=== PATIENT | female | born 1985 | race African-American/Black ===

== ENCOUNTER 2018-07-26 23:35 | Observation (INO) | payer BC, OTHER ==
[2018-07-26 23:38] VITALS: BMI 28.3
--- NOTE | 2018-07-26 23:40 | PDOC ---
History of Present Illness - General Chief Complaint: Pain, Acute Stated Complaint: HERNIA Time Seen by Provider: 07/26/18 23:40 - History of Present Illness Initial Comments: 07/26/18 23:40 Ms. Bocanegra is a 33 yo female w/ pmh of previous umbilical hernia repair w/ mesh who presents for evaluation of sudden onset umbilical pain earlier today. Patient reports she occasionally gets pains to her abdomen and sometimes has to push on her old hernia site, however has never had pain like currently. Patient was at work 1-1 1/2 hours ago and "moved funny" and had sudden onset severe abdominal pain. Reports pain is 10/10. Was in prior state of health until this. The patient denies chest pain, shortness of breath, headache and dizziness. Denies fever, chills, nausea, vomit, diarrhea and constipation. Denies dysuria, frequency, urgency and hematuria. Past History - Past Medical History Allergies/Adverse Reactions: Allergies Allergy/AdvReac Type Severity Reaction Status Date / Time No Known Allergies Allergy Verified 07/26/18 23:36 Home Medications: Ambulatory Orders NK [No Known Home Medication] 07/27/18 COPD: No GI Disorders: Yes (hernia) - Suicide/Smoking/Psychosocial Hx Smoking History: Never smoked Review of Systems - Review of Systems Comments:: 07/26/18 23:41 GENERAL/CONSTITUTIONAL: No fever or chills. No weakness. HEAD, EYES, EARS, NOSE AND THROAT: No change in vision. No ear pain or discharge. No sore throat. CARDIOVASCULAR: No chest pain or shortness of breath RESPIRATORY: No cough, wheezing, or hemoptysis. GASTROINTESTINAL: +Abdominal pain as described. No nausea, vomiting, diarrhea or constipation. GENITOURINARY: No dysuria, frequency, or change in urination. MUSCULOSKELETAL: No joint or muscle swelling or pain. No neck or back pain. SKIN: No rash NEUROLOGIC: No headache, vertigo, loss of consciousness, or change in strength/ sensation. ENDOCRINE: No increased thirst. No abnormal weight change HEMATOLOGIC/LYMPHATIC: No anemia, easy bleeding, or history of blood clots. ALLERGIC/IMMUNOLOGIC: No hives or skin allergy. *Physical Exam - Vital Signs Last Vital Signs Temp Pulse Resp BP Pulse Ox 97.9 F 76 18 134/71 100 07/26/18 23:37 07/26/18 23:37 07/26/18 23:37 07/26/18 23:37 07/26/18 23:37 - Physical Exam Comments: 07/26/18 23:41 GENERAL: Awake, alert, and fully oriented, in no acute distress HEAD: No signs of trauma, normocephalic, atraumatic EYES: PERRLA, EOMI, sclera anicteric, conjunctiva clear ENT: Auricles normal inspection, hearing grossly normal, nares patent, oropharynx clear without exudates. Moist mucosa NECK: Normal ROM, supple, no lymphadenopathy, JVD, or masses LUNGS: No distress, speaks full sentences, clear to auscultation bilaterally HEART: Regular rate and rhythm, normal S1 and S2, no murmurs, rubs or gallops, peripheral pulses normal and equal bilaterally. ABDOMEN: +Midline umbilical hernia noted. Able to be reduced w/ change in abdominal pain from 10 to 6. Soft, normoactive bowel sounds. No guarding, no rebound. No masses EXTREMITIES: Normal inspection, Normal range of motion, no edema. No clubbing or cyanosis. NEUROLOGICAL: Cranial nerves II through XII grossly intact. Normal speech, normal gait, no focal sensorimotor deficits SKIN: Warm, Dry, normal turgor, no rashes or lesions noted. ED Treatment Course - LABORATORY CBC & Chemistry Diagram: 07/27/18 00:30 07/27/18 00:30 Medical Decision Making - Medical Decision Making 07/27/18 00:59 Ms. Bocanegra is a 33 yo female w/ pmh as described who presents for evaluation of symptoms concerning for appendicitis vs. hernia vs. other abdominal illness. Patient hernia noted during physical exam and able to be reduced at bedside w/ improvement of pain. Discussed patient with surgery who requested CT abd/pelvis with IV/Oral contrast. Patient currently pending CT for further evaluation. 07/27/18 02:18 Patient noted to be via serum so CT scan canceled. Surgery made aware and patient will be admitted for repeat evaluation overnight and possible MRI if needed tomorrow for further care needs. Patient reports pain has decreased to "about a 4/10" at this time. *DC/Admit/Observation/Transfer Diagnosis at time of Disposition: Umbilical hernia Qualifiers: Obstruction and gangrene presence: without obstruction or gangrene Qualified Code(s): K42.9 - Umbilical hernia without obstruction or gangrene Abdominal pain Qualifiers: Abdominal location: unspecified location Qualified Code(s): R10.9 - Unspecified abdominal pain - Discharge Dispostion Decision to Admit order: Yes - Referrals Referrals: ON STAFF,NOT [Primary Care Provider] - - Patient Instructions - Post Discharge Activity
[2018-07-26] MEDS ORDERED: morphine CARPU-JECT 4 MG/1 ML DISP.SYRIN IVPUSH ONE (23:58)
[2018-07-27] MEDS ORDERED: morphine SULFATE 4 MG/ML VIAL ONE (00:10)
[2018-07-27] MEDS ORDERED: ACETAMINOPHEN 1000 MG/100 ML VIAL (NON FORMULARY) IVPB ONE (00:14)
[2018-07-27] MEDS ORDERED: ACETAMINOPHEN INJECTION 100 ML IVPB ONE (00:16)
[2018-07-27 00:43] LABS: BASO % 0.7 % (0-2.0); EOS % 2.5 % (0-4.5); HEMOGLOBIN 12.6 GM/dL (10.7-15.3); LYMPH % 30.9 % (8-40); MCH 30.8 pg (25.7-33.7); MEAN CELL VOLUME 93.2 fl (80-96); MEAN PLT VOLUME 7.5 fl (7.5-11.1); MONO % 4.8 % (3.8-10.2); NEUT % 61.1 % (42.8-82.8); PLATELET COUNT 283 K/MM3 (134-434); RBC 4.08 M/mm3 (3.60-5.2); RDW 13.6 % (11.6-15.6); WHITE BLOOD COUNT 11.5 K/mm3 (4.0-10.0)
[2018-07-27 00:56] LABS: INR 0.95 (0.83-1.09); PROTHROMBIN TIME (PATIENT) 11.2 SEC (9.7-13.0)
[2018-07-27 00:59] LABS: ACTIVATED PTT 30.8 SECONDS (25.2-36.5)
[2018-07-27 01:21] LABS: ALBUMIN 3.4 g/dl (3.4-5.0); BILIRUBIN,TOTAL 0.2 mg/dL (0.2-1); CALCIUM 8.7 mg/dL (8.5-10.1); CREATININE 0.6 mg/dL (0.55-1.3); POTASSIUM 4.3 mmol/L (3.5-5.1); TOT PROT 7.1 g/dl (6.4-8.2)
[2018-07-27] MEDS ORDERED: LACTATED RINGERS SOLUTION 1,000 ML IV SCH (02:45)
--- NOTE | 2018-07-27 03:04 | HP ---
CHIEF COMPLAINT: abdominal pain PCP: [facility] HISTORY OF PRESENT ILLNESS: 33-year-old female with a past medical history of an umbilical hernia repair 14 years ago presents the hospital for 1 to 2 hours of severe abdominal pain. Sure reports that the pain is inThe middle of her abdomen just above her belly button.She states that she's had this pain in the past on and off,But it was never this severe.She states that it is in the location where she had her hernia repair with mesh placement 14 years ago. She reports that usually when She has the pain she pushes on the belly to reduce the hernia and it improves however she was not able to do that due to severe pain this episode. She reports the pain is 10 out of 10 in severity, whereas the previous episodes were around 3 to 4 out of 10. In the emergency room the ED provider was able to reduce the hernia and patient reported improved pain from a 10/10 to a 4/10. Patient is passing gas. Denies any nausea, vomiting, or diarrhea. Denies fevers, chills, chest pain, shortness of breath. 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 Denies hematochezia or melena. Patient states that she is hungry. Patient was going to get a CAT scan of the abdomen in the emergency room, however she was found to be the qualitative test, And the CAT scan was canceled. ER course was notable for: (1) WBC 11.5 (2) B-HCG + (3) Recent Travel: Denies PAST MEDICAL HISTORY: umbilical hernia repair 14 years ago PAST SURGICAL HISTORY: umbilical Hernia repair 14 years ago, eight years ago Social History: Smoking: Occasional Alcohol: Occasional with last use yesterday Drugs: It's Denies any history of drug use Family History: Denies any family history of heart disease, cancer, stroke, diabetes Allergies: Denies any drug allergies No Known Allergies Allergy (Verified 07/26/18 23:36) HOME MEDICATIONS: Home Medications Medication Instructions Recorded NK [No Known Home Medication] 07/27/18 REVIEW OF SYSTEMS CONSTITUTIONAL: Absent: fever, chills, diaphoresis, generalized weakness, malaise, loss of appetite, weight change HEENT: Absent: rhinorrhea, nasal congestion, throat pain, throat swelling, difficulty swallowing, mouth swelling, ear pain, eye pain, visual changes CARDIOVASCULAR: Absent: chest pain, syncope, palpitations, irregular heart rate, lightheadedness , peripheral edema RESPIRATORY: Absent: cough, shortness of breath, dyspnea with exertion, orthopnea, wheezing, stridor, hemoptysis GASTROINTESTINAL: Absent: abdominal pain, abdominal distension, nausea, vomiting, diarrhea, constipation, melena, hematochezia GENITOURINARY: Absent: dysuria, frequency, urgency, hesitancy, hematuria, flank pain, genital pain MUSCULOSKELETAL: Absent: myalgia, arthralgia, joint swelling, back pain, neck pain SKIN: Absent: rash, itching, pallor HEMATOLOGIC/IMMUNOLOGIC: Absent: easy bleeding, easy bruising, lymphadenopathy, frequent infections ENDOCRINE: Absent: unexplained weight gain, unexplained weight loss, heat intolerance, cold intolerance NEUROLOGIC: Absent: headache, focal weakness or paresthesias, dizziness, unsteady gait, seizure, mental status changes, bladder or bowel incontinence PSYCHIATRIC: Absent: anxiety, depression, suicidal or homicidal ideation, hallucinations. PHYSICAL EXAMINATION Vital Signs - 24 hr 07/26/18 23:37 Temperature 97.9 F Pulse Rate 76 Respiratory 18 Rate Blood Pressure 134/71 O2 Sat by Pulse 100 Oximetry (%) GENERAL: A&Ox3, no acute distress EYES: PERRLA, EOMI ENT: Moist mucus membranes NECK: No JVD LUNGS: CTA, no wheezes HEART: RRR, no murmurs ABDOMEN: Soft, BS present, Reducible umbilical hernia palpated, With only mild tenderness solicited. MUSCULOSKELETAL: No CVA Tenderness EXTREMITIES: 2+ pulses, no edema. NEUROLOGICAL: Cranial nerves II-XII intact. Laboratory Results - last 24 hr 07/27/18 07/27/18 07/27/18 00:30 00:30 00:30 WBC 11.5 H RBC 4.08 Hgb 12.6 Hct 38.0 MCV 93.2 MCH 30.8 MCHC 33.0 RDW 13.6 Plt Count 283 MPV 7.5 Absolute Neuts (auto) 7.0 Neutrophils % 61.1 Lymphocytes % 30.9 Monocytes % 4.8 Eosinophils % 2.5 Basophils % 0.7 Nucleated RBC % 0 PT with INR 11.20 INR 0.95 PTT (Actin FS) 30.8 Sodium 135 L Potassium 4.3 Chloride 104 Carbon Dioxide 25 Anion Gap 6 L BUN 20 H Creatinine 0.6 Est GFR (CKD-EPI)AfAm 138.80 Est GFR (CKD-EPI)NonAf 119.76 Random Glucose 83 Lactic Acid Calcium 8.7 Total Bilirubin 0.2 AST 17 ALT 25 Alkaline Phosphatase 57 Total Protein 7.1 Albumin 3.4 Beta HCG, Quant 1553.3 Serum , Qual Blood Type Antibody Screen 07/27/18 07/27/18 07/27/18 00:30 00:30 00:30 WBC RBC Hgb Hct MCV MCH MCHC RDW Plt Count MPV Absolute Neuts (auto) Neutrophils % Lymphocytes % Monocytes % Eosinophils % Basophils % Nucleated RBC % PT with INR INR PTT (Actin FS) Sodium Potassium Chloride Carbon Dioxide Anion Gap BUN Creatinine Est GFR (CKD-EPI)AfAm Est GFR (CKD-EPI)NonAf Random Glucose Lactic Acid 0.5 Calcium Total Bilirubin AST ALT Alkaline Phosphatase Total Protein Albumin Beta HCG, Quant Serum , Qual Positive Blood Type O POSITIVE Antibody Screen Negative ASSESSMENT/PLAN: 33-year-old female with a past medical history of an umbilical hernia repair 14 years ago presents the hospital for 1 to 2 hours of severe abdominal pain And is admitted for the evaluation of umbilical hernia #Umbilical Hernia: Unclear nature of the hernia given no imaging studies were done since patient is not able to get a CAT scan due to positive test. -Dr. Uribe consulted -ESR/CRP done -white count 11.5 -pain improved, continue tylenol for pain -will start diet and give as tolerated as patient is passing gas with improved pain /10 -ultrasound abdomen ordered #FEN -1 bag of LR -lytes within normal limits -diet as tolerated #Prophylaxis -SCDs #Disposition -admit obs Visit type - Emergency Visit Emergency Visit: Yes ED Registration Date: 07/27/18 Care time: The patient presented to the Emergency Department on the above date and was hospitalized for further evaluation of their emergent condition. - New Patient This patient is new to me today: Yes Date on this admission: 07/27/18 - Critical Care Critical Care patient: No
[2018-07-27] MEDS ORDERED: ACETAMINOPHEN 325 MG TABLET (FP) PO PRN (03:14)
--- NOTE | 2018-07-27 03:37 | PDOC ---
Documentation entered by Mia Dee SCRIBE, acting as scribe for Jessica Ornelas MD. Jessica Ornelas MD: This documentation has been prepared by the Leila kelly Daisy, SCRIBE, under my direction and personally reviewed by me in its entirety. I confirm that the documentation accurately reflects all work, treatment, procedures, and medical decision making performed by me. Attending Attestation - Resident Resident Name: Chong Dill - ED Attending Attestation I have performed the following: I have examined & evaluated the patient, The case was reviewed & discussed with the resident, I agree w/resident's findings & plan - HPI HPI: 07/26/18 23:49 The patient is a 33YOF with a PMH of umbilical hernia s/p repair with mesh 14 yrs ago at outside hospital, who presents to the ER for pain to umbilical hernia. She states she was at work when she began to experience sudden onset pain to the umbilical hernia site. no n/v no f/c no change to bowel movement. pain was severe. The patient denies chest pain, shortness of breath, headache and dizziness. Denies fever, chills, nausea, vomit, diarrhea and constipation. Denies dysuria, frequency, urgency and hematuria. Allergies: NKDA 07/27/18 03:33 - Physicial Exam PE: 07/27/18 03:32 awake alert lungs clear bilaterally heart rrr no mrg abd soft mild periumbilical ttp. no rebound no guarding. no palp residual hernia ( s/p reduction by dr dill). ext wwp no edema. nuero alert oriented x 3. skin warm and dry. - Medical Decision Making 07/27/18 03:34 33 yo F with umbilical hernia, s/p repair 14 yrs ago, here with recurrent hernia , reduced by dr dill on inital exam. with residual pain. differentil incarcerated fat hernia, bowel entrapment. bowel strangulation and injury, plan ct a/p surgery consult. ua ucg. pt ucg positive. unknown she was . ct cancelled. will require observation for concerns for ongoing pain and bowel integrity. tvus to eval status , gestation age dating. d/w reginald, aleida dmit. d/w dr millard general surgery, will evaluate pt in am, admitted to observation Heart Score/ECG Review #1 General ECG Interpretation: Sinus Rhythm, Normal Rate (80), Normal Intervals, No acute ischemic changes
--- NOTE | 2018-07-27 03:47 | PN ---
Teaching Attending Note ATTENDING PHYSICIAN STATEMENT I saw and evaluated the patient. I reviewed the resident's note and discussed the case with the resident. I agree with the resident's findings and plan as documented. SUBJECTIVE: Seen and examined; please refer to resident note for further historical information. Briefly, patient presents with periumbilical abdominal pain several hours prior to presentation. Had repair with mesh 14 years ago; she forgets who her surgeon is. She has had pain like this in the past improved with self-reducing the hernia. Positive bowel sounds, passing gas, has an appetite. Found to be in ER with +hcg so couldn't get CT. ER requested admission as CT cannot be done; no ultrasound available. Patient requested Dr. Uribe. 10 sys ROS done and negative aside from HPI PMH, PSH, FH, SH reviewed Home Medications Medication Instructions Recorded NK [No Known Home Medication] 07/27/18 OBJECTIVE: VS, labs, imaging reviewed NAD, AAO, resting comfortably in bed Umbilical hernia s/p reduction in ER, mild pain to palpation, ND, +BS NC AT EOMI PERRLA RRR s1/2 no mgr Lungs CTAB, w/ sym exp CN2-12 wnl, no fnd Normal mood, appropriate behavior ASSESSMENT AND PLAN: Patient has pain around her umbilical hernia; s/p repair with mesh 14 years ago. She requested to see Dr. Uribe in consultation. 1) Abdominal Pain with umbilical hernia -Passing gas, improved pain after hydration, has an appetite, hemodynamically stable, positive bowel sounds. PRN APAP available. -Followup surgical consult -Followup ultrasound -Diet as tolerated 2) Leukocytosis -Very mild; likely reactive. Trend CBC and check ESR/CRP 3) -OB referral; avoid teratogens and radiation DVT px: SCDs GI px: not needed Full Code
[2018-07-27 04:43] VITALS: TEMP 98.2
[2018-07-27 07:07] LABS: HEMATOCRIT 33.4 % (32.4-45.2); HEMOGLOBIN 11.3 GM/dL (10.7-15.3); MCH 31.2 pg (25.7-33.7); MCHC 33.9 g/dl (32.0-36.0); MEAN CELL VOLUME 92.1 fl (80-96); MEAN PLT VOLUME 7.4 fl (7.5-11.1); PLATELET COUNT 277 K/MM3 (134-434); RBC 3.63 M/mm3 (3.60-5.2); RDW 13.4 % (11.6-15.6); WHITE BLOOD COUNT 8.6 K/mm3 (4.0-10.0)
[2018-07-27 07:27] LABS: CALCIUM 8.5 mg/dL (8.5-10.1); CREATININE 0.8 mg/dL (0.55-1.3); POTASSIUM 4.3 mmol/L (3.5-5.1)
[2018-07-27 09:54] VITALS: BP 114/66; PULSE 69
--- NOTE | 2018-07-27 10:46 | CONSULT ---
Consult Consult Specialty:: General Surgery Reason for Consultation:: umbilical hernia - History of Present Illness Chief Complaint: abdominal pain History of Present Illness: 33-year-old female with a past medical history of an umbilical hernia repair 14 years ago presents the hospital for 1 to 2 hours of severe abdominal pain. Sure reports that the pain is inThe middle of her abdomen just above her belly button.She states that she's had this pain in the past on and off,But it was never this severe.She states that it is in the location where she had her hernia repair with mesh placement 14 years ago. She reports that usually when She has the pain she pushes on the belly to reduce the hernia and it improves however she was not able to do that due to severe pain this episode. She reports the pain is 10 out of 10 in severity, whereas the previous episodes were around 3 to 4 out of 10. - History Source History Provided By: Patient, Medical Record Limitations to Obtaining History: No Limitations - Alcohol/Substance Use Hx Alcohol Use: No History of Substance Use: reports: None - Smoking History Smoking history: Never smoked Have you smoked in the past 12 months: No - Social History ADL: Independent Place of : [facility] Home Medications - Allergies Allergies/Adverse Reactions: Allergies Allergy/AdvReac Type Severity Reaction Status Date / Time No Known Allergies Allergy Verified 07/26/18 23:36 - Home Medications Home Medications: Ambulatory Orders Vit No.129/Iron/Folic [ One Daily Tablet] 1 each PO DAILY #30 tablet 07/27/18 Review of Systems - Review of Systems Constitutional: denies: Chills, Fever Eyes: denies: Blind Spots, Blurred Vision HENT: denies: Difficult Swallowing, Nasal Congestion Neck: denies: Decreased ROM Cardiovascular: denies: Chest Pain, Palpitations Respiratory: denies: Cough, SOB Gastrointestinal: reports: Abdominal Pain. denies: Bloating Genitourinary: denies: Burning, Discharge, Dysuria Breasts: reports: No Symptoms Reported. denies: Pain Integumentary: denies: Blister, Bruising, Pruritis, Rash Neurological: denies: Unsteady Gait, Weakness Endocrine: denies: Excessive Sweating, Intolerance to Cold Hematology/Lymphatic: denies: Easily Bruised, Excessive Bleeding Psychiatric: denies: Anxiety, Depression Physical Exam Vital Signs: Vital Signs Temperature 98.2 F 07/27/18 09:00 Pulse Rate 69 07/27/18 09:00 Respiratory Rate 17 07/27/18 09:00 Blood Pressure 114/66 07/27/18 09:00 O2 Sat by Pulse Oximetry (%) 99 07/27/18 04:43 Constitutional: Yes: Well Nourished, No Distress, Calm, Obese Eyes: Yes: Conjunctiva Clear, EOM Intact HENT: Yes: Atraumatic, Normocephalic Neck: Yes: Supple, Trachea Midline Cardiovascular: Yes: Regular Rate and Rhythm, S2, S3 Respiratory: Yes: Regular, CTA Bilaterally Gastrointestinal: Yes: Normal Bowel Sounds, Soft ...Rectal Exam: Yes: Deferred Renal/: No: CVA Tenderness - Left, CVA Tenderness - Right Musculoskeletal: No: Muscle Pain, Muscle Weakness Extremities: No: Cool, Cyanosis Edema: No Peripheral Pulses WNL: Yes Integumentary: No: Jaundice, Tattoos Neurological: Yes: Alert, Oriented Psychiatric: Yes: Alert, Oriented Labs: CBC, BMP 07/27/18 06:38 07/27/18 06:38 Imaging - Results Ultrasound: Report Reviewed, Image Reviewed (no hernia seen) Problem List - Problems (1) Umbilical hernia Assessment/Plan: 33yo female with a reduced umbilical hernia, no acute surgeical intervention Diets as tolerated IVF hdyration adequat analgesia avoid heavy lifting activity discussed with michaelnet will follow Thank you for the opportunity to participate in the care of this patient. Code(s): K42.9 - UMBILICAL HERNIA WITHOUT OBSTRUCTION OR GANGRENE Qualifiers: Obstruction and gangrene presence: without obstruction or gangrene Qualified Code(s): K42.9 - Umbilical hernia without obstruction or gangrene (2) Abdominal pain Code(s): R10.9 - UNSPECIFIED ABDOMINAL PAIN Qualifiers: Abdominal location: unspecified location Qualified Code(s): R10.9 - Unspecified abdominal pain (3) Code(s): Z34.90 - ENCNTR FOR SUPRVSN OF NORMAL , UNSP, UNSP TRIMESTER
--- NOTE | 2018-07-27 11:01 | EKG ---
Test Reason : Blood Pressure : / mmHG Vent. Rate : 080 BPM Atrial Rate : 080 BPM P-R Int : 204 ms QRS Dur : 082 ms QT Int : 396 ms P-R-T Axes : 063 048 050 degrees QTc Int : 456 ms NORMAL SINUS RHYTHM NORMAL ECG NO PREVIOUS ECGS AVAILABLE Confirmed by BISI FORD MD ([id number]) on 07/27/2018 11:00:52 AM Also confirmed by SARAH KHAN MD ([id number]) on 07/27/2018 11:04:49 AM Referred By: Confirmed By:SARAH KHAN MD
[2018-07-27 11:19] LABS: ERYTHROCYTE SEDIMENTATION RATE 14 mm/hr (0-20)
--- NOTE | 2018-07-27 11:57 | PN ---
Teaching Attending Note Name of Resident: Ghazala Sanchez ATTENDING PHYSICIAN STATEMENT I saw and evaluated the patient. I reviewed the resident's note and discussed the case with the resident. I agree with the resident's findings and plan as documented. SUBJECTIVE:states her pain is much improved. only when touching the area. denies CP, SOB, fever, chills, N/V/C?D LMP was 4 weeks ago OBJECTIVE: Last Vital Signs Temp Pulse Resp BP Pulse Ox 98.2 F 69 17 114/66 99 07/27/18 09:00 07/27/18 09:00 07/27/18 09:00 07/27/18 09:00 07/27/18 04:43 General NAD CV S1 S2 RRR no murmur/rub/gallop lungs CTA B/L no wheezing/rlaes/rhonchi Abdomen soft +supra-umbilical hernia ( refused attempt to reduce) ASSESSMENT AND PLAN: 33yo F wtih PMH umbilical hernia with mesh surgery 13 years ago presenting with umbilical pain and found to also be 1. Umbilical hernia- no signs of incarceration. unabel to do CT due to + test. u/s done. surgery eval. pain is controlled off medications 2. + test- LMP 4 weeks ago. unsure if she wants to keep . educated on dietary adjustments, start pre- vitamin. has an OB [place] that she going to follow up with. encouraged her to f/u and have further evaluation for 3. awaiting u/s and surgery eval but unlikely will require surgery at this time. likely d/c home later today
--- NOTE | 2018-07-27 12:55 | DS ---
Physical Exam: SUBJECTIVE: Patient seen and examined at bedside- no acute events overngiht; patient states that she is feeling [facility] better- she denies CP/SOB/N/V no longer in pain OBJECTIVE: Vital Signs Period Temp Pulse Resp BP Sys/Doyle Pulse Ox Last 24 Hr 97.9 F-98.2 F 69-78 17-20 106-134/57-71 99-100 PHYSICAL EXAM GENERAL: The patient is awake, alert, and fully oriented, in no acute distress. EYES:PEERLA: EOMI no scleral icterus . NECK: no JVD; no lkymphadenoapthy. LUNGS: CTA B/L; no rales, rhonchi or wheezing. HEART: Regular rate and rhythm, S1, S2 without murmur, rub or gallop. ABDOMEN: Soft, nontender, nondistended, normoactive bowel sounds, no guarding, no rebound, no hepatosplenomegaly, no masses; reproducible umbilical hernia present. EXTREMITIES: 2+ pulses, warm, well-perfused, no edema. PSYCH: Normal mood, normal affect. SKIN: Warm, dry, normal turgor, no rashes or lesions noted. LABS Laboratory Results - last 24 hr 07/27/18 07/27/18 07/27/18 00:30 00:30 00:30 WBC 11.5 H RBC 4.08 Hgb 12.6 Hct 38.0 MCV 93.2 MCH 30.8 MCHC 33.0 RDW 13.6 Plt Count 283 MPV 7.5 Absolute Neuts (auto) 7.0 Neutrophils % 61.1 Lymphocytes % 30.9 Monocytes % 4.8 Eosinophils % 2.5 Basophils % 0.7 Nucleated RBC % 0 ESR PT with INR 11.20 INR 0.95 PTT (Actin FS) 30.8 Sodium 135 L Potassium 4.3 Chloride 104 Carbon Dioxide 25 Anion Gap 6 L BUN 20 H Creatinine 0.6 Est GFR (CKD-EPI)AfAm 138.80 Est GFR (CKD-EPI)NonAf 119.76 Random Glucose 83 Lactic Acid Calcium 8.7 Total Bilirubin 0.2 AST 17 ALT 25 Alkaline Phosphatase 57 C-Reactive Protein Total Protein 7.1 Albumin 3.4 Lipase Beta HCG, Quant 1553.3 Serum , Qual Blood Type Antibody Screen 07/27/18 07/27/18 07/27/18 00:30 00:30 00:30 WBC RBC Hgb Hct MCV MCH MCHC RDW Plt Count MPV Absolute Neuts (auto) Neutrophils % Lymphocytes % Monocytes % Eosinophils % Basophils % Nucleated RBC % ESR PT with INR INR PTT (Actin FS) Sodium Potassium Chloride Carbon Dioxide Anion Gap BUN Creatinine Est GFR (CKD-EPI)AfAm Est GFR (CKD-EPI)NonAf Random Glucose Lactic Acid 0.5 Calcium Total Bilirubin AST ALT Alkaline Phosphatase C-Reactive Protein Total Protein Albumin Lipase Beta HCG, Quant Serum , Qual Positive Blood Type O POSITIVE Antibody Screen Negative 07/27/18 07/27/18 07/27/18 06:38 06:38 06:38 WBC 8.6 RBC 3.63 Hgb 11.3 Hct 33.4 MCV 92.1 MCH 31.2 MCHC 33.9 RDW 13.4 Plt Count 277 MPV 7.4 L Absolute Neuts (auto) Neutrophils % Lymphocytes % Monocytes % Eosinophils % Basophils % Nucleated RBC % ESR 14 PT with INR INR PTT (Actin FS) Sodium 135 L Potassium 4.3 Chloride 103 Carbon Dioxide 27 Anion Gap 6 L BUN 17 Creatinine 0.8 Est GFR (CKD-EPI)AfAm 112.27 Est GFR (CKD-EPI)NonAf 96.87 Random Glucose 81 Lactic Acid Calcium 8.5 Total Bilirubin AST ALT Alkaline Phosphatase C-Reactive Protein 0.9 H Total Protein Albumin Lipase 145 Beta HCG, Quant Serum , Qual Blood Type O POSITIVE Antibody Screen HOSPITAL COURSE: Date of Admission:07/27/18 Date of [id number] female with a past medical history of an umbilical hernia repair 14 years ago presents the hospital for 1 to 2 hours of severe abdominal pain. Sure reports that the pain is inThe middle of her abdomen just above her belly button.She states that she's had this pain in the past on and off,But it was never this severe.She states that it is in the location where she had her hernia repair with mesh placement 14 years ago. She reports that usually when She has the pain she pushes on the belly to reduce the hernia and it improves however she was not able to do that due to severe pain this episode. She reports the pain is 10 out of 10 in severity, whereas the previous episodes were around 3 to 4 out of 10. In the emergency room the ED provider was able to reduce the hernia and patient reported improved pain from a 10/10 to a 4/10. Patient is passing gas. Denies any nausea, vomiting, or diarrhea. Denies fevers, chills, chest pain, shortness of breath. 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 Denies hematochezia or melena. Patient states that she is hungry. Patient was going to get a CAT scan of the abdomen in the emergency room, however she was found to be the qualitative test, And the CAT scan was canceled. pateints pain is is much more controlled' she was seen by surgeon who cleared her since she was no intervention at this tiem./ patient was d/ c home with prenatals and f/u with OB and her PCP ge: 07/27/18 Minutes to complete discharge: 35 Discharge Summary Reason For Visit: UMBILICAL HERNIA Current Active Problems Abdominal pain (Acute) (Acute) Umbilical hernia (Acute) Condition: Stable - Instructions Diet, Activity, Other Instructions: You came to the emergency room with complaints of abdominal pain found to have an umbilical hernia in the same place where your previous one was. You were seen by a general surgeon and no intervention is indicated at this time. We controlled your pain and your symptoms improved. In addition your test came back positive. Please resume all of your home medications. You are being started on a vitamin. Please refrain from drinking alcohol, smoking tobacco, limit your caffiene intake to less than 200mg daily and consuming foods that could affect your . a hand out has been provided. 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 *if you begin to experience worsening abdominal pain, chest pains, shortness of breath, nausea/vomiting please return to the emergency room immediately Referrals: Sumeet Uribe MD [Staff Physician] - Disposition: HOME - Home Medications Comprehensive Discharge Medication List: Ambulatory Orders Vit No.129/Iron/Folic [ One Daily Tablet] 1 each PO DAILY #30 tablet 07/27/18 Problem List - Problems (1) Abdominal pain Code(s): R10.9 - UNSPECIFIED ABDOMINAL PAIN Qualifiers: Abdominal location: unspecified location Qualified Code(s): R10.9 - Unspecified abdominal pain (2) Code(s): Z34.90 - ENCNTR FOR SUPRVSN OF NORMAL , UNSP, UNSP TRIMESTER (3) Umbilical hernia Code(s): K42.9 - UMBILICAL HERNIA WITHOUT OBSTRUCTION OR GANGRENE Qualifiers: Obstruction and gangrene presence: without obstruction or gangrene Qualified Code(s): K42.9 - Umbilical hernia without obstruction or gangrene This patient is new to me today: Yes Date on this admission: 07/27/18 Emergency Visit: Yes ED Registration Date: 07/27/18 Care time: The patient presented to the Emergency Department on the above date and was hospitalized for further evaluation of their emergent condition. Critical Care patient: No - Discharge Referral Referred to [facility] No
== END 2018-07-27 14:00 | disposition home or self-care (01) ==
LOC: JER 23:35 → JERBED 07-27 02:32 → J5S 07-27 03:44
PROVIDERS: ADMIT Internal Medicine; ATTEND Internal Medicine
PROC: 3E033NZ Introduction of Analgesics, Hypnotics, Sedatives into Peripheral Vein, Percutaneous Approach (ICD-10-PCS; principal; 2018-07-27)
PROC: 3E0337Z Introduction of Electrolytic and Water Balance Substance into Peripheral Vein, Percutaneous Approach (ICD-10-PCS; 2018-07-27)
DX: K42.9 Umbilical hernia without obstruction or gangrene (principal); R10.33 Periumbilical pain; D72.829 Elevated white blood cell count, unspecified; Z32.01 Encounter for pregnancy test, result positive
CPT/HCPCS: 36415; 76705-TC; 80048; 80053; 83605; 83690; 84702; 84703; 85025; 85027; 85610; 85651; 85730; 86140; 86850; 86900; 86901; 93005; 93010; 99284-25; G0378; J0131